=== PATIENT | female | born 1955 | race Caucasian/White ===

== ENCOUNTER 2022-06-02 06:05 | Day surgery (SDC) | payer MEDICARE ==
[2022-06-02] MEDS ORDERED: Lactated Ringers 1,000 ML IV SCH (06:30)
[2022-06-02] MEDS ORDERED: DIPRIVAN 200 MG/20 ML IV ONE ×2 (08:15→08:34)
[2022-06-02] MEDS ORDERED: Xylocaine-Mpf 2% 5 Ml Vial ONE (08:15)
[2022-06-02 09:30] VITALS: BP 138/96; PULSE 72; O2SAT 99
--- NOTE | 2022-06-02 11:48 | OP ---
SURGERY DATE/TIME: 06/02/2022 08 PREOPERATIVE DIAGNOSIS: Screening colonoscopy. POSTOPERATIVE DIAGNOSIS: Sigmoid colon polyp x1. PROCEDURE: Colonoscopy. SURGEON: Torey Lagunas M.D. ANESTHESIA: MAC by Neil Amaya CRNA. ESTIMATED BLOOD LOSS: Minimal. SPECIMENS: Hot forceps polypectomy distal sigmoid colon x1. DESCRIPTION OF PROCEDURE: After informed written consent was obtained, the patient was taken to the endoscopy suite. She was placed in left lateral decubitus position and anesthesia was titrated to desired level of consciousness. Digital rectal exam showed normal sphincter tone and no internal lesions. The scope was inserted into the rectum and sequentially the entire colonic mucosa was traversed. The level of cecum was reached and verified with direct visualization of the ileocecal valve. Upon withdrawal there were no mucosal lesions. There were no abnormalities found until the distal sigmoid colon was reached. There was a very small sessile polyp which was grasped with forceps, cauterized and removed in its entirety with no bleeding and this was sent for pathology testing. Prior to withdrawal retroflexion showed minimal internal lesions. The scope was removed. The patient was transferred to the recovery room in good condition. She was advised to follow up in a week for pathology results.
== END 2022-06-02 09:44 | disposition home or self-care (01) ==
LOC: SDC 06:05
PROVIDERS: ATTEND Family Medicine
DX: Z12.11 Encounter for screening for malignant neoplasm of colon (principal); K63.5 Polyp of colon
CPT/HCPCS: J2704

== ENCOUNTER 2022-06-30 12:34 | Day surgery (SDC) | payer MEDICARE ==
[2022-06-30] MEDS ORDERED: LIDOCAINE HCL 2% 100 MG/5 ML IJ ONE (12:35)
[2022-06-30] MEDS ORDERED: Depo-Medrol 40 MG/ML IM ONE (12:35)
[2022-06-30] MEDS ORDERED: DIPRIVAN 200 MG/20 ML IV ONE (14:49)
--- NOTE | 2022-06-30 15:19 | XRAY ---
Indication: Bilateral L4-S1 MBB. Intraoperative fluoroscopy provided for 23 seconds. Single digital spot image submitted for interpretation demonstrates posterior needle tips projecting over the expected left and right L4-S1 nerve roots. Correlate with intraoperative findings/report.
[2022-06-30] MEDS ORDERED: Lactated Ringers 1,000 ML IV ONE (15:44)
== END 2022-06-30 15:25 | disposition home or self-care (01) ==
LOC: SDC-PAIN 12:34
PROVIDERS: ATTEND Psychiatry & Neurology Pain Medicine
DX: M47.816 Spondylosis without myelopathy or radiculopathy, lumbar region (principal); Z79.899 Other long term (current) drug therapy
CPT/HCPCS: 64493; 64494; 72020; 77002; J1030; J2704

== ENCOUNTER 2022-07-21 10:02 | Day surgery (SDC) | payer MEDICARE ==
[2022-07-21] MEDS ORDERED: BUPIVACAINE 0.5% VIAL IJ ONE (10:03)
[2022-07-21] MEDS ORDERED: Depo-Medrol 40 MG/ML IM ONE (10:03)
[2022-07-21] MEDS ORDERED: Versed 2 MG/2 ML Injection ONE (10:50)
[2022-07-21] MEDS ORDERED: APRESOLINE 20 MG/ML INJ ONE (11:22)
[2022-07-21] MEDS ORDERED: DIPRIVAN 200 MG/20 ML IV ONE (12:01)
[2022-07-21] MEDS ORDERED: Lactated Ringers 1,000 ML IV ONE (14:45)
--- NOTE | 2022-07-21 18:10 | XRAY ---
Indication: Bilateral L4-S1 MBB. Intraoperative fluoroscopy provided for 11 seconds. Single digital spot image submitted for interpretation demonstrates posterior needle tips projecting over the expected left and right L4-S1 nerve roots. Correlate with intraoperative findings/report.
--- NOTE | 2022-07-21 19:01 | XRAY ---
11 seconds of fluoroscopy was used in surgery for bilateral L4-S1 MBB.
== END 2022-07-21 12:26 | disposition home or self-care (01) ==
LOC: SDC-PAIN 10:02
PROVIDERS: ATTEND Psychiatry & Neurology Pain Medicine
DX: M47.816 Spondylosis without myelopathy or radiculopathy, lumbar region (principal); Z79.899 Other long term (current) drug therapy
CPT/HCPCS: 64493; 64494; 72020; 77002; J0360; J1030; J2250; J2704

== ENCOUNTER 2022-07-28 08:17 | Day surgery (SDC) | payer MEDICARE ==
[2022-07-28] MEDS ORDERED: LIDOCAINE HCL 1% 50 MG/5 ML VL PF IJ ONE (08:18)
[2022-07-28] MEDS ORDERED: Depo-Medrol 40 MG/ML IM ONE (08:18)
[2022-07-28] MEDS ORDERED: BUPIVACAINE 0.5% VIAL IJ ONE (08:18)
[2022-07-28] MEDS ORDERED: Versed 2 MG/2 ML Injection ONE (09:19)
[2022-07-28] MEDS ORDERED: Xylocaine-Mpf 2% 5 Ml Vial ONE (09:59)
[2022-07-28] MEDS ORDERED: DIPRIVAN 200 MG/20 ML IV ONE (09:59)
[2022-07-28] MEDS ORDERED: Lactated Ringers 1,000 ML IV ONE (10:43)
--- NOTE | 2022-07-28 12:05 | XRAY ---
Indication: Right L4-S1 RFA. Intraoperative fluoroscopy provided for 23 seconds. 4 digital spot image submitted for interpretation demonstrates posterior needle tips projecting over the expected right L4-S1 nerve roots. Correlate with intraoperative findings/report.
--- NOTE | 2022-07-28 12:42 | XRAY ---
23 seconds of fluoroscopy was used in surgery for a right L4-S1 RFA.
== END 2022-07-28 10:35 | disposition home or self-care (01) ==
LOC: SDC-PAIN 08:17
PROVIDERS: ATTEND Psychiatry & Neurology Pain Medicine
DX: M47.816 Spondylosis without myelopathy or radiculopathy, lumbar region (principal); I10 Essential (primary) hypertension; Z79.899 Other long term (current) drug therapy
CPT/HCPCS: 64635; 64636; 72100; 77002; J1030; J2001; J2250; J2704

== ENCOUNTER 2022-08-04 07:59 | Day surgery (SDC) | payer MEDICARE ==
[2022-08-04] MEDS ORDERED: LIDOCAINE HCL 1% 50 MG/5 ML VL PF IJ ONE (08:00)
[2022-08-04] MEDS ORDERED: BUPIVACAINE 0.5% VIAL IJ ONE (08:00)
[2022-08-04] MEDS ORDERED: Depo-Medrol 40 MG/ML IM ONE (08:00)
[2022-08-04] MEDS ORDERED: Versed 2 MG/2 ML Injection ONE (08:25)
[2022-08-04] MEDS ORDERED: DIPRIVAN 200 MG/20 ML IV ONE (09:02)
--- NOTE | 2022-08-04 12:01 | XRAY ---
Indication: Left L4-S1 RFA. Intraoperative fluoroscopy provided for 26 seconds. 3 digital spot images submitted for interpretation demonstrates posterior needle tips projecting over the expected left L4-S1 nerve roots. Correlate with intraoperative findings/report.
--- NOTE | 2022-08-04 12:17 | XRAY ---
26 seconds of fluoroscopy was used in surgery for a left L4-S1 RFA.
[2022-08-04] MEDS ORDERED: Lactated Ringers 1,000 ML IV ONE (14:08)
== END 2022-08-04 09:14 | disposition home or self-care (01) ==
LOC: SDC-PAIN 07:59
PROVIDERS: ATTEND Psychiatry & Neurology Pain Medicine
DX: M47.816 Spondylosis without myelopathy or radiculopathy, lumbar region (principal); Z79.899 Other long term (current) drug therapy
CPT/HCPCS: 64635; 64636; 72100; 77002; J1030; J2001; J2250; J2704

== ENCOUNTER 2024-12-05 12:33 | Day surgery (SDC) | payer MEDICARE ==
[2024-12-05] MEDS ORDERED: BUPIVACAINE 0.5% VIAL IJ ONE (12:34)
[2024-12-05] MEDS ORDERED: LIDOCAINE HCL 1% 50 MG/5 ML VL IJ ONE (12:34)
[2024-12-05] MEDS ORDERED: methylPREDNISolone acetate IM ONE (12:34)
[2024-12-05] MEDS ORDERED: propofoL IV ONE ×2 (13:25→13:32)
[2024-12-05] MEDS ORDERED: Lactated Ringers 1,000 ML IV ONE (14:49)
--- NOTE | 2024-12-05 19:21 | XRAY ---
Indication: Right L4-S1 RFA. Intraoperative fluoroscopy provided for 14 seconds. 3 digital spot image submitted for interpretation demonstrates posterior needle tips projecting over expected right L4-S1 nerve roots. Correlate with intraoperative findings/report.
--- NOTE | 2024-12-05 19:37 | XRAY ---
14 seconds of fluoroscopy was used in surgery for a right L4-S1 RFA.
== END 2024-12-05 14:00 | disposition home or self-care (01) ==
LOC: SDC-PAIN 12:33
PROVIDERS: ATTEND Psychiatry & Neurology Pain Medicine
DX: M47.817 Spondylosis without myelopathy or radiculopathy, lumbosacral region (principal)